=== PATIENT | female | born 1955 | race Caucasian/White ===

== ENCOUNTER 2021-06-28 15:06 | Outpatient (REF) | payer OTHER, SELFPAY ==
[2021-06-28 16:15] LABS: Erythrocyte Sedimentation Rate 5 MM/HR (0-20)
[2021-06-30 05:07] LABS: Lyme Abs Screen <0.90 index
== END 2021-06-28 15:07 | disposition home or self-care (01) ==
LOC: HO.LAB 15:06
PROVIDERS: PCP Internal Medicine; Visit Provider Psychiatry & Neurology Neurology
DX: G44.229 Chronic tension-type headache, not intractable (principal)
CPT/HCPCS: 36415; 85652; 86617; 86618